=== PATIENT | female | born 1965 ===

== ENCOUNTER 2023-01-11 06:45 | Emergency (ER) | payer OTHER ==
[2023-01-11 07:20] LABS: BASOPHILS PERCENT AUTO 0.2 % (0.0-1.5); HEMATOCRIT 31.8 % (36.0-46.0); HEMOGLOBIN 9.5 g/dL (12.0-16.0); LYMPHOCYTES PERCENT AUTO 4.2 % (16.0-40.0); MEAN CORPUSCULAR HEMOGLOBIN 27.9 pg (27.0-32.0); MEAN CORPUSCULAR HGB CONC 29.9 g/dL (31.0-37.0); MEAN CORPUSCULAR VOLUME 93.5 fL (80.0-98.0); MONOCYTES ABSOLUTE AUTO 0.6 K/uL (0.0-0.8); MONOCYTES PERCENT AUTO 2.7 % (0.0-15.0); NEUTROPHILS ABSOLUTE AUTO 21.5 K/uL (1.4-5.7); NEUTROPHILS PERCENT AUTO 92.9 % (48.0-80.0); NRBC ABSOLUTE 0 K/uL; PLATELET COUNT,PLT 369 K/uL (150-400)
[2023-01-11] MEDS ORDERED: Lactated Ringers 1,000 ML IV SCH ×2 (07:30→10:00)
[2023-01-11 07:34] LABS: A/G RATIO 0.5 (0.9-1.6); BILIRUBIN TOTAL 0.7 mg/dL (0.2-1.0); CALCIUM 7.4 mg/dL (8.5-10.1); CARBON DIOXIDE,CO2 28.6 mmol/L (21.0-32.0); CREATININE 4.4 mg/dL (0.6-1.0); EST CRCL DRUG DOSING (CG) 11.81 mL/min; MAGNESIUM 1.3 mg/dL (1.8-2.4); PHOSPHORUS 4.2 mg/dL (2.6-4.7); POTASSIUM,K 4.9 mmol/L (3.5-5.1)
[2023-01-11 07:38] LABS: D-DIMER QUANTITATIVE 6.16 mg/L FEU (0.00-0.50); INR 1.23 (0.86-1.11)
[2023-01-11] MEDS: Furosemide 40 MG/4 ML VIAL IVPUSH ONE ×2 (07:39→10:55)
[2023-01-11] MEDS ORDERED: Norepinephrine Bit/D5W Premix 250 ML IV SCH (07:45)
[2023-01-11] MEDS ORDERED: Piperacillin/Tazobactam 3.375 GM in Sodium Chloride 0.9% 100 ML IV ONE (07:47)
[2023-01-11 07:55] LABS: LACTIC ACID 3.3 mmol/L (0.4-2.0)
[2023-01-11] MEDS ORDERED: VANCOmycin 1.5 GM/300 ML 1.5 GM in Premix Bag 1 BAG IV ONE (08:30)
[2023-01-11] MEDS ORDERED: Magnesium Sulfate/Water 2 GM in Premix Bag 1 BAG IV ONE (08:38)
[2023-01-11 09:11] LABS: APPEARANCE,URINE CLOUDY; GLUCOSE,URINE NEGATIVE (NEGATIVE); KETONES,URINE TRACE mg/dL (NEGATIVE); LEUKOCYTE ESTERASE,URINE MODERATE (NEGATIVE); NITRITE,URINE POSITIVE (NEGATIVE); OCCULT BLOOD,URINE MODERATE (NEGATIVE); PH,URINE 6.5 (5.0-8.0); PROTEIN,URINE >=300 mg/dL (NEGATIVE); UROBILINOGEN,URINE 0.2 EU/dL (<2.0)
[2023-01-11 09:13] LABS: BILIRUBIN,URINE SMALL (NEGATIVE); COLOR,URINE DARK YELLOW
[2023-01-11 09:22] LABS: EPITHELIAL CELLS,URINE FEW (NONE-FEW); WBC,URINE 80-100 (0-5/HPF)
[2023-01-11 09:23] LABS: BACTERIA,URINE 2+ (NEGATIVE)
[2023-01-11 09:27] LABS: CORONAVIRUS COVID-19 NAA NEGATIVE (NEGATIVE); INFLUENZA A NAA NEGATIVE (NEGATIVE); INFLUENZA B NAA NEGATIVE (NEGATIVE); RESPIRATORY SYNCYTIAL VIR NAA NEGATIVE (NEGATIVE)
[2023-01-11] MEDS ORDERED: Ketamine 500 mg/10 ML MDV ONE (09:38)
[2023-01-11] MEDS ORDERED: fentaNYL 100 MCG/2 ML SDV ONE ×2 (09:40→10:47)
[2023-01-11] MEDS ORDERED: Sodium Chloride 0.9% 1,000 ML IV ONE (09:55)
[2023-01-11] MEDS ORDERED: Ketamine 500 mg/10 ML MDV IM STA (09:58)
[2023-01-11] MEDS ORDERED: Ketamine 500 mg/10 ML MDV IV ONE (09:58)
[2023-01-11] MEDS ORDERED: Rocuronium 50 MG/5 ML Vial IVPUSH ONE ×2 (10:00→11:10)
[2023-01-11] MEDS ORDERED: Vasopressin 100 UNITS in Dextrose 5% in Water 245 ML IV SCH ×2 (10:00)
[2023-01-11] MEDS ORDERED: fentaNYL 50 MCG/ML SDV IVPUSH ONE ×2 (10:25→10:35)
[2023-01-11 10:32] LABS: BASE EXCESS VENOUS 2.7 (-2.0-3.0); PH,VENOUS 7.38 (7.31-7.41)
[2023-01-11] MEDS ORDERED: fentaNYL 100 MCG/2 ML SDV IVPUSH STA (10:48)
== END 2023-01-11 10:45 ==
LOC: MW.ED 06:45
DX: A41.9 Sepsis, unspecified organism (principal); R65.21 Severe sepsis with septic shock; J18.9 Pneumonia, unspecified organism; Z20.822 Contact with and (suspected) exposure to COVID-19
CPT/HCPCS: 0241U; 31500; 36415; 71045; 74018; 80053; 81001; 82803; 83605; 83690; 83735; 83880; 84100; 84484; 85025; 85379; 85610; 87040; 87077; 87086; 87154; 87186; 87635; 93005; 94660; 96365; 96366; 96368; 96375; 99291; 99292; J1940; J2543; J3010; J3370; J3475; J3490; J7030; J7120; 93010; U0002

== ENCOUNTER 2023-05-07 00:39 | Emergency (ER) | payer OTHER ==
[2023-05-07] MEDS ORDERED: Sodium Chloride 0.9% 2.5 ML Syringe FLUSH PRN (00:40)
[2023-05-07] MEDS ORDERED: Sodium Chloride 0.9% 10 ML Syringe FLUSH PRN (00:40)
[2023-05-07 00:59] LABS: BASOPHILS ABSOLUTE AUTO 0.04 K/uL (0.00-0.20); BASOPHILS PERCENT AUTO 0.3 % (0.0-1.0); EOSINOPHILS ABSOLUTE AUTO 0.17 K/uL (0.00-0.45); EOSINOPHILS PERCENT AUTO 1.2 % (0.0-6.0); HEMATOCRIT 34.9 % (37.0-47.0); HEMOGLOBIN 10.7 g/dL (12.0-16.0); IMMATURE GRAN ABSOLUTE AUTO 0.03 K/uL (0.00-0.05); IMMATURE GRAN PERCENT AUTO 0.2 % (0.0-0.4); LYMPHOCYTES PERCENT AUTO 8.8 % (24.0-44.0); MEAN CORPUSCULAR HEMOGLOBIN 28.2 pg (28.0-32.0); MEAN CORPUSCULAR HGB CONC 30.7 g/dL (32.0-36.0); MEAN CORPUSCULAR VOLUME 91.8 fL (83.0-99.0); MEAN PLATELET VOLUME 9.4 fL (9.4-12.3); MONOCYTES ABSOLUTE AUTO 0.37 K/uL (0.00-0.80); MONOCYTES PERCENT AUTO 2.7 % (0.0-8.0); NEUTROPHILS ABSOLUTE AUTO 11.84 K/uL (1.80-7.70); NEUTROPHILS PERCENT AUTO 86.8 % (41.0-71.0); PLATELET COUNT,PLT 538 K/uL (150-400); WHITE BLOOD CELL COUNT,WBC 13.65 K/uL (3.9-11.3)
[2023-05-07] MEDS ORDERED: Sodium Chloride 0.9% 1,000 ML IV ONE (01:08)
[2023-05-07] MEDS ORDERED: Ondansetron 4 MG/2 ML SDV IVPUSH ONE (01:09)
[2023-05-07 01:21] LABS: A/G RATIO 0.6 (0.9-1.6); ALBUMIN 2.3 g/dL (3.4-5.0); BILIRUBIN TOTAL 0.2 mg/dL (0.2-1.0); CALCIUM 8.6 mg/dL (8.5-10.1); CREATININE 1.6 mg/dL (0.6-1.0); EST CRCL DRUG DOSING (CG) 32.48 mL/min; PROTEIN TOTAL,TP 6.2 g/dL (6.4-8.2)
[2023-05-07] MEDS ORDERED: Lidocaine 2% Viscous Solution 15 ML UD PO ONE (01:25)
[2023-05-07] MEDS ORDERED: Aluminum Hydroxide/Magnesium Hydroxide/Simethicone XS Susp 30 ML Cup PO ONE (01:25)
[2023-05-07 01:26] LABS: LACTIC ACID 0.7 mmol/L (0.4-2.0)
[2023-05-07] MEDS ORDERED: Acetaminophen 325 MG Tab PO ONE (01:46)
[2023-05-07 02:35] LABS: APPEARANCE,URINE CLEAR; BILIRUBIN,URINE NEGATIVE (NEGATIVE); COLOR,URINE YELLOW; GLUCOSE,URINE NEGATIVE (NEGATIVE); KETONES,URINE NEGATIVE (NEGATIVE); LEUKOCYTE ESTERASE,URINE NEGATIVE (NEGATIVE); NITRITE,URINE NEGATIVE (NEGATIVE); OCCULT BLOOD,URINE TRACE-INTACT (NEGATIVE); PROTEIN,URINE NEGATIVE (NEGATIVE); UROBILINOGEN,URINE 0.2 EU/dL (<2.0)
[2023-05-07 02:42] LABS: BACTERIA,URINE FEW (NEGATIVE); EPITHELIAL CELLS,URINE FEW (NONE-FEW); RBC,URINE 0-2 (0-2/HPF); WBC,URINE 0-2 (0-5/HPF)
[2023-05-07] MEDS ORDERED: Morphine 4 MG/ML Syringe IM ONE (03:24)
[2023-05-07] MEDS ORDERED: Morphine 4 MG/ML Syringe IVPUSH ONE (03:29)
[2023-05-07] MEDS ORDERED: NICARDIPINE IV SCH (04:15)
[2023-05-07] MEDS ORDERED: NORMAL SALINE IV SCH (04:15)
[2023-05-07] MEDS ORDERED: niCARdipine/Normal Saline 0 ML ONE (04:18)
[2023-05-07] MEDS ORDERED: Esmolol 2,500 MG in Sodium Chloride 0.9% 250 ML IV SCH (04:30)
[2023-05-07] MEDS ORDERED: Iopamidol 755 Mg/ML 100 ML Bottle IVPUSH ONE (05:15)
[2023-05-07] MEDS ORDERED: Nitroglycerin/D5W 25 MG/250 ML BOTTLE IV SCH (06:00)
== END 2023-05-07 09:10 ==
LOC: MW.ED 00:39
DX: R10.9 Unspecified abdominal pain (principal); I71.10 Thoracic aortic aneurysm, ruptured, unspecified; K80.20 Calculus of gallbladder without cholecystitis without obstruction; I11.0 Hypertensive heart disease with heart failure; I50.9 Heart failure, unspecified; Z88.0 Allergy status to penicillin; Z88.8 Allergy status to other drugs, medicaments and biological substances; Z91.018 Allergy to other foods; Z79.899 Other long term (current) drug therapy
CPT/HCPCS: 36415; 71250; 71275; 74174; 74176; 76705; 80053; 81001; 83605; 83690; 84484; 85025; 93005; 96361; 96365; 96366; 96368; 96375; 99285; A9270; J2270; J2305; J2405; J3490; J7030; Q9967